=== PATIENT | female | born 1990 ===

== ENCOUNTER 2016-12-20 13:16 | Inpatient (IN) ==
[2016-12-20] MEDS ORDERED: LACTATED RINGERS 1,000 ML IV ONE (14:38)
[2016-12-20] MEDS ORDERED: TERBUTALINE 1 MG/1 ML VIAL SUBCUT ONE (15:20)
[2016-12-20] MEDS ORDERED: MEPERIDINE 50 MG/1 ML VIAL IM ONE (15:21)
[2016-12-20] MEDS ORDERED: PROMETHAZINE 25 MG/1 ML VIAL IM ONE (15:21)
[2016-12-20] MEDS: LACTATED RINGERS 1,000 ML IV SCH ×2 (16:20→19:22)
[2016-12-20] MEDS ORDERED: CITRIC ACID/SODIUM CITRATE 30 ML UDCUP PO ONE (17:20)
[2016-12-20] MEDS ORDERED: FAMOTIDINE 20 MG/2 ML VIAL IV ONE (17:20)
[2016-12-20] MEDS ORDERED: ceFAZolin 2,000 MG in PREMIX 1 EACH IV ONE (17:20)
[2016-12-20] MEDS ORDERED: OXYTOCIN 10 UNIT/ML VIAL ONE (17:22)
[2016-12-20] MEDS ORDERED: OXYTOCIN/LR 0 UNIT/0 ML BAG IV ONE (17:23)
[2016-12-20] MEDS ORDERED: OXYTOCIN/LR 20 UNIT/1,000 ML BAG IV ONE ×2 (17:35→22:09)
[2016-12-20 17:40] LABS: Basophils % 0.2 % (0.0-0.8); Eosinophils # 0.1 10*3/uL (0.0-0.87); Eosinophils % 1.3 % (0.00-10.9); Hematocrit 31.4 VOL% (35.7-47.0); Hemoglobin 10.1 GM/DL (12.0-16.0); Immature Granulocytes % 0.4 %; Immature Granulocytes Absolute 0.02 #; Lymphocytes # 1.3 10*3/uL (1.4-4.0); Lymphocytes % 24.7 % (21.3-54.2); Mean Corpuscular HGB Conc 32.2 GM/DL (32-36); Mean Corpuscular Hemoglobin 27 PG (27-34); Mean Corpuscular Volume 83.7 FL (87-102); Mean Platelet Volume 12.5 FL (9.6-12.0); Monocytes # 0.3 10*3/uL (0.11-0.8); Monocytes % 5.4 % (1.7-12.7); Neutrophils # 3.7 10*3/uL (1.4-7.4); Platelet Count 114 T/CUMM (130-400); Red Blood Count 3.75 MC/CUMM (3.8-5.5); Red Cell Distribution Width 13.8 % (9.3-17.3); White Blood Count 5.4 T/CUMM (4-12)
[2016-12-20 17:46] LABS: Apearance,Urine CLEAR (Clear); Bilirubin,Urine Negative (Negative); Blood, Urine Negative (Negative); Glucose,Urine (UA) Negative (Negative); Ketones,Urine 5 mg/dL (Negative); Mucus,Urine Occasional /LPF (Occasional); Nitrite,Urine Negative (Negative); Protein,Urine Negative; RBC,Urine <1 /HPF (0-4); Squamous Epithelial Cell,Urine Occasional /HPF (0-10); Urine Color Yellow (Yellow); Urine Specific Gravity 1.016 (1.001-1.035); WBC,Urine 1 /HPF (0-6)
[2016-12-20 18:01] LABS: Alanine Aminotransferase 14 U/L (13-56); Albumin 2.2 G/DL (3.4-5.0); Alkaline Phosphatase 288 U/L (45-117); Aspartate Amino Transferase 27 U/L (0-37); Bilirubin,Total < 0.39 MG/DL (0.2-1.0); Blood Urea Nitrogen 5 MG/DL (7-18); Calcium 8.2 MG/DL (8.5-10.1); Glucose 95 MG/DL (74-106); Osmolality,Calculated 275.4 MOS/KG (273-304); Potassium 3.7 MMOL/L (3.5-5.1); Sodium 140 MMOL/L (136-145); Total Protein 6.3 G/DL (6.4-8.3)
--- NOTE | 2016-12-20 18:37 | OB/GYN History & Physical ---
History of Present Illness Chief complaint: Painful regular uterine contractions 5 minutes apart History of present illness: Ms. Reyez is a 26 year old female 3 para 2 JUSTINE 12/30/2016 estimated gestational age of 38 weeks and 4 days. The patient presents to the labor department with complaints of painful regular uterine contractions and contractions 5 minutes apart with pain at incisional site as well. In light of these findings the patient was administered Brethine and IV fluids she continued to contract therefore the decision for a repeat section due to term and uterine contractions was made per Dr. Manuel. The risk and benefits were thoroughly discussed with this patient and significant other, plan of care was discussed with Dr. Manuel and all parties are in agreement with plan. The patient received her care through the [facility] in [facility] and she received routine care throughout. Her course was complicated by diabetes otherwise she had an uneventful course. labs: She is GBS negative no other lab values are present at the time of dictation. Home Medications Medication Instructions Recorded Confirmed Type Pnv No.95/Ferrous Fum/Folic AC 1 each PO DAILY 11/16/16 12/20/16 History [ Tablet] Allergies Allergy/AdvReac Type Severity Reaction Status Date / Time No Known Allergies Allergy Verified 02/03/15 12:27 12 point system: reviewed and no additional remarkable complaints except as stated Medical,Surgical,& Family Hx - Medical History Endocrine: History of: Diabetes Mellitus (NIDDM) Reproductive: No history of: Ectopic , Complication - Surgical History Reproductive Surgeries: Surgical HX of;: Section - Family History Family History: Reports;: Family Diabetes (MOM), Family Hypertension (AUNT) Denies;: Family Anesthesia Reaction, Family Cancer, Family Heart Disease, Family Psychiatric Problems, Family Stroke - Social History Smoking Status: Never smoker Marital Status: Single Lives With:: Significant Other Functional capacity: independent ambulation Exam MAMMALOGIST - Constitutional General appearance: mild distress - Antepartum / Post Antepartum Exam Cervix -Dilatation: 1 cm Effacement: 50% Station: -2 Rupture: intact Presentation: vtx Heart Rate: 140s Breast: bilateral: normal Abdomen obstetrics: Present: bowel sounds normal Vagina: Present: normal moisture, discharge Cervix: Present: normal Uterus exam: Present: enlarged Anus/Rectum: Present: normal perianal skin - Respiratory Respiratory exam: Present: clear to auscultation bilaterally - Cardiovascular Cardiovascular exam: Present: regular rate and rhythm - GI/Abdominal GI/Abdominal exam: Present: normal bowel sounds, soft - Extremities Exam Extremities exam: Present: normal inspection - Neurological Exam Neurological exam: Present: alert, oriented X3 - Psychiatric Psychiatric exam: Present: normal affect, normal mood - Skin Skin exam: Present: normal color, warm Assessment and Plan (1) Previous section Status: Acute Assessment and plan: Admit IV fluids IV pain meds Consent and preop for section Anticipate delivery of a viable infant Current Visit: Yes (2) Uterine contractions Status: Acute Current Visit: Yes Results - Labs CBC & BMP: 12/20/16 17:29 12/20/16 17:29
[2016-12-20 20:36] LABS: Cord Arterial Blood HCO3 26.9 MMOL/L
[2016-12-20 20:39] LABS: Cord Venous Blood HCO3 22.1 MMOL/L; Cord Venous Blood PCO2 43.3 MMHG
[2016-12-20] MEDS ORDERED: MORPHINE 10 MG/10 ML VIAL ONE (20:42)
[2016-12-20] MEDS ORDERED: ePHEDrine 50 MG/ML AMP ONE (20:43)
[2016-12-20] MEDS ORDERED: fentaNYL 100 MCG/2 ML VIAL ONE (20:43)
[2016-12-20 20:55] LABS: HIV Antigen/Antibody Result Nonreactive (Nonreactive); Hepatitis B Surface Ag Quant < 0.10 Index; Hepatitis B Surface Ag Result Negative (Negative); Rubella Antibody IgG 9.3 IU/ML
--- NOTE | 2016-12-20 22:08 | Operative Note ---
Date of procedure: 12/20/16 Procedure: Preoperative diagnosis: Repeat section, active labor 38+ weeks 4 days, Postoperative diagnosis: Same Anesthesia:[] Regional anesthesia Estimated blood loss: [] Less than 300 Surgeon: Dr. Manuel Findings: [] Male infant, 9 lbs. 1 oz., Apgars were 9 at 1 minute 9 at 5 minutes , time of delivery is 2008 p.m. Complications: None Procedure: Low transverse section bilateral tubal ligation The patient was taken to the operating suite heart tones were obtained prior to and after regional anesthesia was obtained. She was placed in supine position her abdomen was prepped and draped in usual manner for major abdominal surgery. Through an abdominal incision the skin, subcutaneous, fascial layer and peritoneal the abdomen was entered. The bladder flap was created and a low transverse incision was made.. Fluid was clear and normal amount X, Apgars, the placenta was delivered and sent to lab for further evaluation. Injected with intrauterine Pitocin. The first layer of the uterus was closed with #1 Vicryl in a continuous locking manner. Close to imbricate the first layer with #1 Vicryl. The peritoneum was approximated with #2-0 Vicryl.[Fallopian tubes were grasped with a Yvan clamp into the avascular mesosalpinx was perforated. Proximal distal end of the tube was ligated segment in between was excised. Cut edges were then cauterized same technique was performed on the opposite side] All the last sponges and instruments were accounted for -2.) #2 -0 Vicryl. Fascia was approximated with #0-0 Maxon.. The skin was approximated with tye. She tolerated procedure well and was taken to recovery room in stable condition. Surgeon / Physician: Aniya Manuel Results - Labs CBC & BMP: 12/20/16 17:29 12/20/16 17:29 Discharge Plan - Discharge Medications No Action Pnv No.95/Ferrous Fum/Folic AC [ Tablet] 1 each PO DAILY - Follow Up or Referral - Forms/Instructions
[2016-12-20] MEDS ORDERED: ACETAMINOPHEN 325 MG TABLET PO PRN (22:09)
[2016-12-20] MEDS ORDERED: SIMETHICONE CHEW 80 MG TABLET PO PRN (22:09)
[2016-12-20] MEDS ORDERED: ONDANSETRON 4 MG/2 ML VIAL IV PRN (22:09)
[2016-12-20] MEDS ORDERED: RHO(D) IMMUNE GLOBULIN 300 MCG SYRINGE IM ONE (22:09)
[2016-12-20] MEDS ORDERED: IBUPROFEN 800 MG TABLET PO PRN (22:09)
[2016-12-20] MEDS ORDERED: LACTATED RINGERS 1,000 ML IV SCH (22:30)
[2016-12-20] MEDS ORDERED: diphenhydrAMINE 50 MG/1 ML VIAL ONE (22:35)
[2016-12-20] MEDS ORDERED: diphenhydrAMINE 50 MG/1 ML VIAL IV ONE (22:36)
--- NOTE | 2016-12-20 23:07 | Anesthesia Post-Op ---
Anesthesia Post OP - Post Ansesthetic Evaluation Patient seen in post op: Yes Resp: within normal limits CV: within normal limits Mental: within normal limits Temp: within normal limits [id number]: within normal limits Nausea and Vomiting: within normal limits Pain: within normal limits
[2016-12-20] MEDS: hydrALAZINE 20 MG/1 ML VIAL IV SCH ×2 (23:33→23:50)
[2016-12-21 05:31] LABS: Basophils % 0.1 % (0.0-0.8); Eosinophils # 0.1 10*3/uL (0.0-0.87); Eosinophils % 0.8 % (0.00-10.9); Hematocrit 29.5 VOL% (35.7-47.0); Hemoglobin 9.4 GM/DL (12.0-16.0); Immature Granulocytes % 0.3 %; Immature Granulocytes Absolute 0.02 #; Lymphocytes # 1.4 10*3/uL (1.4-4.0); Lymphocytes % 19.4 % (21.3-54.2); Mean Corpuscular HGB Conc 31.9 GM/DL (32-36); Mean Corpuscular Hemoglobin 27 PG (27-34); Mean Corpuscular Volume 83.1 FL (87-102); Mean Platelet Volume 12.9 FL (9.6-12.0); Monocytes # 0.3 10*3/uL (0.11-0.8); Monocytes % 4.6 % (1.7-12.7); Neutrophils # 5.6 10*3/uL (1.4-7.4); Neutrophils % 74.8 % (38.7-73.9); Platelet Count 109 T/CUMM (130-400); Red Blood Count 3.55 MC/CUMM (3.8-5.5); Red Cell Distribution Width 13.7 % (9.3-17.3); White Blood Count 7.4 T/CUMM (4-12)
[2016-12-21] MEDS ORDERED: FERROUS SULFATE 325 MG TABLET PO SCH (09:00)
--- NOTE | 2016-12-21 09:32 | OB/GYN Progress Note ---
Assessment and Plan (1) Previous section Status: Acute Assessment and plan: Admit IV fluids IV pain meds Consent and preop for section Anticipate delivery of a viable Current Visit: Yes (2) Uterine contractions Status: Acute Current Visit: Yes (3) S/P repeat low transverse Status: Acute Assessment and plan: Initiate routine postop orders. Current Visit: Yes SENIOR TAX MANAGER - PN: Subj Interval history: Stable with no complaints. Bonding well with . Exam SENIOR TAX MANAGER - Constitutional Vitals: Vital Signs Temp Pulse Resp BP Pulse Ox 12/21/16 07:28 97.4 F L 88 18 126/73 98 12/21/16 04:00 97.1 F L 72 20 142/68 99 12/21/16 03:00 88 20 146/84 99 12/21/16 02:00 82 18 142/74 99 12/21/16 01:30 85 18 151/72 99 12/21/16 01:00 98.0 F 86 20 132/72 99 12/20/16 22:09 98.7 F 70 20 133/69 99 General appearance: no acute distress - Antepartum / Post Post Exam Breast: bilateral: normal Abdomen obstetrics: Present: bowel sounds normal Vagina: Present: discharge (light lochia rubra) Uterus exam: Present: enlarged (FF <:) - Gyencological / Post Surgical Post Surgical Exam Lungs: bilateral: normal Chest: Normal S1, Normal S2 Extremities SENIOR TAX MANAGER: Present: normal Abdomen obstetrics progress note: Present: normal appearance, soft Incision OB: Present: normal, intact - Respiratory Respiratory exam: Present: clear to auscultation bilaterally - Cardiovascular Cardiovascular exam: Present: regular rate and rhythm - GI/Abdominal GI/Abdominal exam: Present: normal bowel sounds, soft - Extremities Exam Extremities exam: Present: normal inspection - Neurological Exam Neurological exam: Present: alert, oriented X3 - Psychiatric Psychiatric exam: Present: normal affect, normal mood - Skin Skin exam: Present: normal color, warm Results - Labs CBC & BMP: 12/21/16 04:44 12/20/16 17:29
[2016-12-21] MEDS: MULTIVITAMIN (PRENATAL) TABLET PO SCH (09:37)
[2016-12-21] MEDS: DOCUSATE SODIUM 100 MG CAPSULE PO SCH ×2 (09:37→22:25)
[2016-12-21] MEDS: FERROUS SULFATE 325 MG TABLET PO SCH ×2 (09:37→22:25)
[2016-12-21] MEDS: MAGNESIUM HYDROXIDE SUSP 30 ML UDCUP PO PRN ×2 (12:40→22:25)
[2016-12-22 07:09] VITALS: BP 110/69
[2016-12-22] MEDS ORDERED: BISACODYL 10 MG SUPP RECTAL PRN (07:23)
[2016-12-22] MEDS: FERROUS SULFATE 325 MG TABLET PO SCH ×2 (09:30→09:48)
[2016-12-22] MEDS: DOCUSATE SODIUM 100 MG CAPSULE PO SCH (09:48)
--- NOTE | 2016-12-22 10:12 | Discharge Summary ---
Hospital Course - Hospital Course Hospital Course: Ms. Reyez presented to the hospital with complaints of painful contractions and a previous section. The patient was admitted and a repeat section was performed for Dr. Manuel. The patient had a viable infant with no complications. She has followed a normal postoperative course and she is doing well. Her bleeding is minimal with no odor. Her fundus is firm and midline. Her bowel sounds are positive and she has had normal bowel movement. She has minimal incision pain and her incision is well approximated without signs of infection. Her vital signs and lab values are stable. She will be discharged home with prescriptions for pain and follow-up appointment in our office. Diagnosis - Discharge Diagnosis (1) Previous section Status: Acute (2) Uterine contractions Status: Acute (3) S/P repeat low transverse Status: Acute Specialty Discharge - Follow Up or Referrals Follow up with: Aniya Manuel MD [Physician] - 01/04/17 10:30 am Discharge Plan - Discharge Data Disposition: Disch To Home/Self Care Condition at Discharge: Stable Discharge Diet: advance to your usual diet, regular diet Activity: increase activity as tolerated, no lifting, no prolonged standing Hygiene: may shower Weight Bearing at Discharge: partial weight bearing Driving: not until seen by doctor Contact your physician if you experience:: fever over 101, pain uncontrolled by pain medications - Discharge Medications New Ibuprofen Tab [Motrin Tab] 800 mg PO Q8H PRN #30 tablet PRN Reason: Pain Severe (8-10) Ferrous Sulfate Tab [Feosol Original Tab] 325 mg PO BID #60 tablet HYDROcodone/ACETAMIN 5-325 [Soso 5-325] 2 tablet PO Q6H PRN #30 tablet PRN Reason: Pain Severe (8-10) No Action Pnv No.95/Ferrous Fum/Folic AC [ Tablet] 1 each PO DAILY - Follow Up or Referral Follow Up: Aniya Manuel MD [Physician] - 01/04/17 10:30 am - Forms/Instructions Instructions: Section (DC), Perineal Care (DC), Bleeding (DC) Exam - Constitutional Vitals: Period Temp Pulse Resp BP Sys/Castillo Pulse Ox Last 24 Hr 96.7 F-98.8 F 86-105 16-20 107-144/61-78 97-99 General appearance: no acute distress - Respiratory Respiratory exam: Present: clear to auscultation bilaterally - Cardiovascular Cardiovascular exam: Present: regular rate and rhythm - GI/Abdominal GI/Abdominal exam: Present: normal bowel sounds, soft - Back Exam Back exam: Present: normal inspection - Neurological Exam Neurological exam: Present: alert, oriented X3 - Psychiatric Psychiatric exam: Present: normal affect, normal mood - Skin Skin exam: Present: normal color, warm DS: Provider Date of admission: 12/20/16 17:20 Primary care physician: Erika Medina MD Attending physician on admission: Aniya Manuel MD Consults: 12/20/16 17:20 Consult to Anesthesiology [CONS] Routine Consulting Provider: Reason for Anesthesiology: Pre-op Clearance 12/20/16 22:09 Consult to Bore Mill Operator For Plastic [CONS] Routine Consult Bore Mill Operator For Plastic: Breast Feeding Discharging clinician: Yasemin Torrez CNM Expected date of discharge: 12/22/16
[2016-12-22] MEDS ORDERED: MEASLES/MUMPS/RUBELLA VACCINE 0.5 ML VIAL SUBCUT ONE (11:44)
[2016-12-22] MEDS ORDERED: DIPH/TET/ACEL PERT BOOSTER VACCINE 0.5 ML VIAL IM ONE (11:44)
[2016-12-22] MEDS: MULTIVITAMIN (PRENATAL) TABLET PO SCH (12:55)
== END 2016-12-22 13:30 | disposition home or self-care (01) | DRG 540 ==
LOC: N.LDOUT 13:16 → N.LD 13:18 → N.OB 12-21 01:00
PROVIDERS: ADMIT Obstetrics & Gynecology; ATTEND Obstetrics & Gynecology